=== PATIENT | female | born 1995 | race American Indian/Alaskan Native ===

== ENCOUNTER 2019-05-16 20:26 | Emergency (ER) | payer SELFPAY ==
[2019-05-16 20:34] VITALS: BP 98/61
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
[2019-05-16 21:59] LABS: Basophils % (Auto) 0.5 % (0.0-1.8); Eosinophils # (Auto) 0.1 K/mm3 (0.0-0.4); Eosinophils % (Auto) 1.6 % (0.0-4.3); Hematocrit 39.3 % (30.3-42.9); Lymphocytes % (Auto) 24.3 % (13.4-35.0); Mean Corpuscular HGB Conc 33 % (30-34); Monocytes # (Auto) 0.6 K/mm3 (0.0-0.8); Monocytes % (Auto) 6.7 % (0.0-7.3); Platelet Count 268 K/mm3 (140-440); Red Blood Count 5.67 M/mm3 (3.65-5.03); Red Cell Distribution Width 14.3 % (13.2-15.2)
[2019-05-16 22:01] LABS: Mean Corpuscular Volume 69 fl (79-97)
--- NOTE | 2019-05-16 22:36 | Ultrasound Report ---
OB Ultrasound HISTORY: abd pain. TECHNIQUE: Grayscale and color Doppler imaging performed. COMPARISON: None FINDINGS: There is a single intrauterine gestation which is transverse in presentation. Heart rate is 152 bpm. Placenta is positioned anteriorly and abuts the internal cervical os. CARYN is 3 cm. Overall EGA is 14 weeks and 4 days compared to the clinical age of 13 weeks and 1 day. There are simple bilat eral ovarian cysts. Cervical length is 3.9 cm. IMPRESSION: 1. Single viable intrauterine gestation as above. 2. Low-lying placenta. Attention on follow-up recommended. Signer Name: Karsten Bergeron MD Signed: 05/16/2019 10:32 PM Workstation Name: [id number]
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
== END 2019-05-17 02:00 | disposition home or self-care (01) ==
LOC: ED 20:26
DX: O26.891 Other specified pregnancy related conditions, first trimester (principal); R10.9 Unspecified abdominal pain; Z79.899 Other long term (current) drug therapy; Z3A.12 12 weeks gestation of pregnancy
CPT/HCPCS: 36415; 76805; 84702; 85025